=== PATIENT | female | born 1955 | race Asian ===

== ENCOUNTER 2016-10-20 07:55 | Emergency (ER) | payer OTHER ==
[~2016-10-20] VITALS: Ht 162.6 cm; Wt 63.6 kg
[~2016-10-20 07:55] MED LIST: AMOX1TAB10 PO; ASPI81TA3 PO; ATOR10TA65 PO; CARV12.579 PO; FLUT200B INHALATION; LOSA25TA5 PO; PANT40TA4 PO; TIOT4MIS4 INHALATION; [UNRECOGNIZED DRUG - OTHER] PO
[2016-10-20] MEDS ORDERED: ALBUTEROL 0.083% (NEB) 2.5 MG/3 ML AMP HHN STA (08:00)
[2016-10-20] MEDS ORDERED: IPRATROPIUM (NEB) 0.5 MG/2.5 ML AMP HHN ONE (08:00)
[2016-10-20 08:04] VITALS: Ht 162.6 cm; Wt 63.6 kg
[2016-10-20] MEDS ORDERED: METHYLPREDNISOLONE 40 MG INJ IV ONE (08:30)
--- NOTE | 2016-10-20 08:32 | RADRPT ---
PROCEDURE: XR Chest. CLINICAL INDICATION: Chest Pain. TECHNIQUE: Single frontal chest x-ray. COMPARISON: 10/05/2015 FINDINGS: The lungs are clear of acute infiltrates, edema, effusions, or masses. There is a left-sided cardiac pacer / AICD in place.. The cardiomediastinal silhouette is unremarkable. The osseous structures a re intact. IMPRESSION: No acute cardiopulmonary disease. Left-sided AICD in place. RPTAT: GG .Vasile Hernandez MD, Date Time Electronically viewed and signed by .Vasile Hernandez MD, MD on 10/20/2016 08:31 .L/
[2016-10-20 08:50] LABS: BASOPHILS % 0.1 % (0.0-2.0); EOSINOPHILS # 0.1 10^3/ul (0.0-0.5); EOSINOPHILS % 0.9 % (0.0-7.0); HEMATOCRIT 46.9 % (37.0-47.0); LYMPHOCYTES % 6.7 % (15.0-51.0); MEAN CORPUSCULAR HEMOGLOBIN 29.1 pg (29.0-33.0); MEAN CORPUSCULAR VOLUME 91.1 fl (82.0-101.0); MEAN PLATELET VOLUME 9.4 fl (7.4-10.4); MONOCYTE # 0.7 10^3/ul (0.3-0.9); MONOCYTES % 4.6 % (0.0-11.0); PLATELET COUNT 258 10^3/UL (140-415); RED BLOOD COUNT 5.15 10^6/ul (4.20-5.40); RED CELL DISTRIBUTION WIDTH 12.7 % (11.5-14.5); WHITE BLOOD COUNT 14.9 10^3/ul (4.8-10.8)
[2016-10-20 09:08] LABS: INR 0.87; PARTIAL THROMBOPLASTIN TIME 26.7 Sec (25.0-35.0); PROTIME 11.8 Sec (12.2-14.2); PT RATIO 0.9
[2016-10-20 09:12] LABS: ANION GAP 21 (8-16); BLOOD UREA NITROGEN 25 mg/dl (7-20); CALCIUM 9.3 mg/dl (8.4-10.2); CARBON DIOXIDE 29 mmol/L (21-31); CHLORIDE 102 mmol/L (97-110); CREATININE 0.86 mg/dl (0.44-1.00); GLUCOSE 164 mg/dl (70-220); POTASSIUM 3.6 mmol/L (3.5-5.1); SODIUM 148 mmol/L (135-144)
[2016-10-20 09:21] LABS: B-TYPE NATRIURETIC PEPTIDE 243 PG/ML (0-125)
[2016-10-20 09:55] LABS: TROPONIN-I < 0.012 ng/ml (0.00-0.12)
[2016-10-20] MEDS ORDERED: METHYLPREDNISOLONE 125 MG INJ IV ONE (10:00)
[2016-10-20 10:05] VITALS: BP 112/72; PULSE 106
[2016-10-20] MEDS ORDERED: LEVALBUTEROL (NEB) 1.25 MG/0.5 ML AMP HHN ONE (10:30)
[2016-10-20] MEDS ORDERED: ALBU18HF INHALATION (10:48)
[2016-10-20] MEDS ORDERED: PRED20TA PO (10:48)
[2016-10-20] MEDS ORDERED: AZIT250T94 PO (10:48)
--- NOTE | 2016-10-20 10:55 | ERD ---
ER Documentation Chief Complaint Date/Time DATE: 10/20/16 TIME: 10:51 Chief Complaint CAME IN VIA INTAKE DUE TO SHORTNESS OF BREATH HPI This 61-year-old male is brought in by paramedics with severe shortness of breath it has been going on for the last 3 days. Bedside Slovak certified pesticide applicator phone was used for the manner and language. Patient's was at bedside but did not speak Sami sufficiently either. Turns out patient lost her albuterol inhaler and she wanted to first use it last night she could not find it. She has had no fever and chills and no signs of infection. Denies any chest pain although she states that she does have a cardiac history she does not believe this is cardiac. ROS All systems reviewed and are negative except as per history of present illness. Medications Home Meds Active Scripts Prednisone* (Prednisone*) 20 Mg Tab, 40 MG PO DAILY for 4 Days, TAB Prov:JOO LANDRY 10/20/16 Albuterol Sulfate* (Ventolin HFA*) 18 Gm Hfa.aer.ad, 2 PUFF INHALATION Q4H, #1 INHALER Prov:JOO LANDRY 10/20/16 Azithromycin* (Zithromax*) 250 Mg Tablet, 250 MG PO .ZPACK DIRECTED, #6 TAB TAKE 500 MG (2 TABS) THE FIRST DAY THEN 250 MG (1 TAB) DAYS 2-5 Prov:JOO LANDRY 10/20/16 Amox Tr/Potassium Clavulanate (Amox Tr-K Clv 875-125 Mg Tab) 1 Tab Tablet, 875 MG PO BID, #14 TAB Prov:MEDINA TIAN MD 10/06/15 Carvedilol* (Carvedilol*) 12.5 Mg Tablet, 12.5 MG PO BID, #120 TAB Prov:MEDINA TIAN MD 10/06/15 Pantoprazole* (Pantoprazole*) 40 Mg Tablet.dr, 40 MG PO BID@,18 for 28 Days Prov:ÁNGELA DURÁN MD 09/05/15 Reported Medications Fluticasone Furoate (Arnuity Ellipta) 200 Mcg Blst.w.dev, 200 MCG INHALATION DAILY, #1 INHALER 09/01/15 Tiotropium Br/Olodaterol HCl (Stiolto Respimat Inhal [place]) 4 Gm Mist.inhal, 1 PUFF INHALATION DAILY, #1 INHALER 09/01/15 Atorvastatin Calcium (Atorvastatin Calcium) 10 Mg Tablet, 10 MG PO QHS, #30 TAB 09/01/15 Aspirin (Aspirin) 81 Mg Chew, 81 MG PO DAILY, TAB.CHEW 02/15/15 [Concor Bisoprolot] No Conflict Check, 2.5 MG PO QAM 02/15/15 Losartan Potassium* (Losartan Potassium*) 25 Mg Tablet, 25 MG PO BID, TAB 02/15/15 Allergies Allergies: Coded Allergies: No Known Allergy (Unverified , 10/06/15) PMhx/Soc History of Surgery: Yes (STENT PLACEMENT, PACEMAKER PLACEMENT) Anesthesia Reaction: No Hx Neurological Disorder: No Hx Respiratory Disorders: Yes (COPD) Hx Cardiac Disorders: Yes (HTN,PACEMAKER,HIGH CHOLESTEROL) Hx Psychiatric Problems: No Hx Miscellaneous Medical Probl: No Hx Alcohol Use: No Hx Substance Use: No Hx Tobacco Use: No Smoking Status: Never smoker Physical Exam Vitals Vital Signs Date Time Temp Pulse Resp B/P Pulse Ox O2 Delivery O2 Flow Rate FiO2 10/20/16 10:27 103 20 100 21 10/20/16 10:05 106 112/72 10/20/16 08:21 Vapotherm 10/20/16 08:07 109 24 100 Non Rebreather Mask 15.0 10/20/16 08:04 98.4 116 26 126/71 73 Physical Exam Const: [] Moderate distress, tachypneic Head: Atraumatic Eyes: Normal Conjunctiva ENT: Normal External Ears, Nose and Mouth. Neck: Full range of motion..~ No meningismus. Resp: Bilateral expiratory wheezes with tight lung sounds and mild accessory muscle use, tachypnea Cardio: Regular tachycardia, no murmurs Abd: Soft, non tender, non distended. Normal bowel sounds Skin: No petechiae or rashes Ext: No cyanosis, or edema Neur: Awake and alert and oriented 3, no focal deficit Psych: Appears somewhat anxious Result Diagram: 10/20/1682710/20/1628 Results 24 hrs Laboratory Tests Test 10/20/16 08:28 White Blood Count 14.910^3/ul Red Blood Count 5.1510^6/ul Hemoglobin 15.0g/dl Hematocrit 46.9% Mean Corpuscular Volume 91.1fl Mean Corpuscular Hemoglobin 29.1pg Mean Corpuscular Hemoglobin Concent 32.0g/dl Red Cell Distribution Width 12.7% Platelet Count 40513^3/UL Mean Platelet Volume 9.4fl Neutrophils % 87.0% Lymphocytes % 6.7% Monocytes % 4.6% Eosinophils % 0.9% Basophils % 0.1% Nucleated Red Blood Cells % 0.0/100WBC Neutrophils # 13.010^3/ul Lymphocytes # 1.010^3/ul Monocytes # 0.710^3/ul Eosinophils # 0.110^3/ul Basophils # 0.010^3/ul Nucleated Red Blood Cells # 0.010^3/ul Prothrombin Time 11.8Sec Prothrombin Time Ratio 0.9 INR International Normalized Ratio 0.87 Activated Partial Thromboplast Time 26.7Sec Sodium Level 148mmol/L Potassium Level 3.6mmol/L Chloride Level 102mmol/L Carbon Dioxide Level 29mmol/L Anion Gap 21 Blood Urea Nitrogen 25mg/dl Creatinine 0.86mg/dl Glucose Level 164mg/dl Calcium Level 9.3mg/dl Troponin I < 0.012ng/ml B-Type Natriuretic Peptide 243PG/ML Current Medications Medications (Trade) Dose Ordered Sig/Bebeto Route PRN Reason Start Time Stop Time Status Last Admin Dose Admin Albuterol (Proventil 0.083% (Neb)) 10 mg ONCE STAT [facility] 10/20/16 08:00 10/20/16 08:02 DC 10/20/16 08:05 Ipratropium [place] (Atrovent 0.02% (Neb)) 1 mg ONCE ONCE N 10/20/16 08:00 10/20/16 08:02 DC 10/20/16 08:05 Methylprednisolone Sodium Succinate (Solu-Medrol) 40 mg ONCE ONCE IV 10/20/16 08:30 10/20/16 08:31 DC 10/20/16 09:26 Methylprednisolone Sodium Succinate (Solu-Medrol) 125 mg ONCE ONCE IV 10/20/16 10:00 10/20/16 10:01 DC 10/20/16 10:03 Levalbuterol (Xopenex Neb) 1.25 mg ONCE ONCE [facility] 10/20/16 10:30 10/20/16 10:31 DC 10/20/16 10:26 Procedures/MDM Moderate to severe COPD exacerbation was able to be completely resolved in the emergency room with medication. Cardiac exam including laboratories EKG and dairy nutritionist was also performed secondary to patient's cardiac history. She was given Solu-Medrol IV. . she had a negative troponin and a tachycardic EKG without signs of overt acute cardiac ischemia. Patient was spoken to again after treatments with a lung sounds were completely normal. She stated that she had no symptoms whatsoever and absolutely did not want to stay in the hospital. Discharge instructions were explained to the patient she is going to follow-up with her primary care doctor which she has just recently changed. I am discharging with Ventolin, azithromycin as the patient did have an elevated white blood cell count I would not want to think bronchitis would continue to exacerbate this condition as well as 4 days of prednisone. EKG interpretation: Sinus tachycardia rate of 109, left axis deviation, right bundle branch block, no ST or T-wave changes concerning for acute ischemia, prolonged QTC of 535. [email or web address] engineer interpretation: Mild sinus tachycardia without other arrhythmia Chest x-ray interpretation: See ICD in place without any acute process, no infiltrate, no pulmonary edema, no fractures. Departure Diagnosis: Primary Impression: COPD exacerbation Condition: Stable Patient Instructions: Copd Flare Additional Instructions: Call your primary care doctor TOMORROW for an appointment during the next 2-3 days.See the doctor sooner or return here if your condition worsens before your appointment time. JOO LANDRY DO Oct 20, 2016 10:55
== END 2016-10-20 13:23 | disposition home or self-care (01) ==
LOC: E/R 07:55
DX: J44.1 Chronic obstructive pulmonary disease with (acute) exacerbation (principal); R40.2142 Coma scale, eyes open, spontaneous, at arrival to emergency department; R40.2252 Coma scale, best verbal response, oriented, at arrival to emergency department; R40.2362 Coma scale, best motor response, obeys commands, at arrival to emergency department; I10 Essential (primary) hypertension; Z95.0 Presence of cardiac pacemaker; Z98.61 Coronary angioplasty status; Z79.82 Long term (current) use of aspirin
CPT/HCPCS: 71010; 80048; 83880; 84484; 85025; 85610; 85730; 93005; 94644; 94664; J2920; J2930; Z7610; 36415; 96374; 96376

== ENCOUNTER 2018-05-17 18:38 | Emergency (ER) | payer OTHER ==
[~2018-05-17] VITALS: Ht 157.5 cm; Wt 63.3 kg
[~2018-05-17 18:38] MED LIST changes: +ALBU18HF INHALATION; +ASPI-831 PO; -ASPI81TA3 PO; +AZIT250T PO; +LOSA25TA12 PO; -LOSA25TA5 PO; +PRED20TA PO
[2018-05-17 18:56] VITALS: Ht 157.5 cm; Wt 63.3 kg
[2018-05-17] MEDS ORDERED: ALBUTEROL 0.5% (NEB) 2.5 MG/0.5 ML AMP INH STA (19:42)
[2018-05-17] MEDS ORDERED: DEXAMETHASONE 10 MG/ML 1 ML INJ IV STA (19:42)
[2018-05-17] MEDS ORDERED: IPRATROPIUM (NEB) 0.5 MG/2.5 ML AMP INH STA (19:42)
--- NOTE | 2018-05-17 20:03 | ERD ---
ER Documentation Chief Complaint Chief Complaint ASTHMA EXACERBATION; SOB; O2 SAT 74% ON ROOM AIR; PLACED ON O2 NC HPI 62-year-old female with a history of asthma, diabetes, and pacemaker brought in by for low oxygen saturations at home. She is not normally on home oxygen. She is complaining of shortness of breath since today. No chest pain. No other associated symptoms. She denies any leg swelling, recent fevers or chills. She does have inhalers at home which she used without relief. ROS All systems reviewed and are negative except as per history of present illness. Medications Home Meds Reported Medications Metformin* (Glucophage*) 500 Mg Tab, 500 MG PO BID, #90 TAB 05/17/18 Calcium Carbonate ([id number]) 500 Mg Tablet, 500 MG PO DAILY, TAB 05/17/18 Aspirin* (Aspirin* EC) 81 Mg Tablet.dr, 81 MG PO DAILY, TAB 05/17/18 Simvastatin (Simvastatin) 10 Mg Tablet, 10 MG PO QHS, #30 TAB 05/17/18 Fluticasone-Vilanterol (Breo Ellipta Inhaler) 100-25 Mcg/Actuation Aer.pow.ba, 1 PUFF INHALATION DAILY, #1 INHALER 05/17/18 Omeprazole* (Omeprazole*) 40 Mg Capsule.dr, 40 MG PO AC BREAKFAST, #30 CAP 05/17/18 Bisoprolol Fumarate* (Bisoprolol Fumarate*) 5 Mg Tablet, 5 MG PO DAILY, TAB 05/17/18 Montelukast Sodium* (Montelukast Sodium*) 10 Mg Tablet, 10 MG PO QHS, #30 TAB 05/17/18 Discontinued Reported Medications Fluticasone Furoate (Arnuity Ellipta) 200 Mcg Blst.w.dev, 200 MCG INHALATION DAILY, #1 INHALER 09/01/15 Tiotropium Br/Olodaterol HCl (Stiolto Respimat Inhal [place]) 4 Gm Mist.inhal, 1 PUFF INHALATION DAILY MDD AT HS, #1 INHALER 09/01/15 Atorvastatin Calcium (Atorvastatin Calcium) 10 Mg Tablet, 10 MG PO QHS, #30 TAB 09/01/15 Aspirin (Aspirin) 81 Mg Chew, 81 MG PO DAILY, TAB.CHEW 02/15/15 [Concor Bisoprolot] No Conflict Check, 2.5 MG PO QAM 02/15/15 Losartan Potassium* (Losartan Potassium*) 25 Mg Tablet, 25 MG PO BID, TAB 02/15/15 Discontinued Scripts Prednisone* (Prednisone*) 20 Mg Tab, 40 MG PO DAILY for 4 Days, TAB Prov:JOO LANDRY DO 10/20/16 Albuterol Sulfate* (Ventolin HFA*) 18 Gm Hfa.aer.ad, 2 PUFF INHALATION Q4H, #1 I NHALER Prov:JOO LANDRY DO 10/20/16 Azithromycin* (Zithromax*) 250 Mg Tablet, 250 MG PO .ZPACK DIRECTED, #6 TAB TAKE 500 MG (2 TABS) THE FIRST DAY THEN 250 MG (1 TAB) DAYS 2-5 Prov:JOO LANDRY 10/20/16 Amox Tr/Potassium Clavulanate (Amox Tr-K Clv 875-125 Mg Tab) 1 Tab Tablet, 875 MG PO BID, #14 TAB Prov:MEDINA TIAN MD 10/06/15 Carvedilol* (Carvedilol*) 12.5 Mg Tablet, 12.5 MG PO BID, #120 TAB Prov:MEDINA TIAN MD 10/06/15 Pantoprazole* (Pantoprazole*) 40 Mg Tablet.dr, 40 MG PO BID@06,18 for 28 Days Prov:ÁNGELA DURÁN MD 09/05/15 Allergies Allergies: Coded Allergies: No Known Allergy (Unverified , 10/06/15) PMhx/Soc History of Surgery: Yes (STENT PLACEMENT, PACEMAKER PLACEMENT) Anesthesia Reaction: No Hx Neurological Disorder: No Hx Respiratory Disorders: Yes (COPD) Hx Cardiac Disorders: Yes (HTN,PACEMAKER,HIGH CHOLESTEROL) Hx Psychiatric Problems: No Hx Miscellaneous Medical Probl: No Hx Alcohol Use: No Hx Substance Use: No Hx Tobacco Use: No Smoking Status: Never smoker FmHx Family History: No diabetes Physical Exam Vitals Vital Signs Date Temp Pulse Resp B/P (MAP) Pulse Ox O2 O2 Flow FiO2 Time Delivery Rate 05/17/18 91 19 102/85 99 Mask 10.0 20:32 (91) 05/17/18 89 28 97 Simple 8.0 19:50 Mask 05/17/18 Nasal 4 19:49 Cannula 05/17/18 98.8 96 24 143/73 98 18:56 (96) Physical Exam Const: In moderate respiratory distress, nontoxic Head: Atraumatic Eyes: Normal Conjunctiva ENT: Normal External Ears, Nose and Mouth. Neck: Full range of motion. No meningismus. Resp: Tachypneic. Diffuse expiratory wheezing with good air movement. No rales or rhonchi Cardio: Regular rate and rhythm, no murmurs. 2+ distal pulses in all 4 extremities Abd: Soft, non tender, non distended. Normal bowel sounds Skin: No petechiae or rashes Back: No midline or flank tenderness Ext: No cyanosis, or edema Neur: Awake and alert Psych: Normal Mood and Affect Result Diagram: 05/17/18199905/17/181999 Results 24 hrs Laboratory Tests Test 05/17/18 20:00 White Blood Count 7.6 10^3/ul Red Blood Count 4.91 10^6/ul Hemoglobin 14.1 g/dl Hematocrit 44.9 % Mean Corpuscular Volume 91.4 fl Mean Corpuscular Hemoglobin 28.7 pg Mean Corpuscular Hemoglobin Concent 31.4 g/dl Red Cell Distribution Width 12.4 % Platelet Count 302 10^3/UL Mean Platelet Volume 8.7 fl Immature Granulocytes % 0.900 % Neutrophils % 73.3 % Lymphocytes % 14.1 % Monocytes % 4.2 % Eosinophils % 7.1 % Basophils % 0.4 % Nucleated Red Blood Cells % 0.0 /100WBC Immature Granulocytes # 0.070 10^3/ul Neutrophils # 5.6 10^3/ul Lymphocytes # 1.1 10^3/ul Monocytes # 0.3 10^3/ul Eosinophils # 0.5 10^3/ul Basophils # 0.0 10^3/ul Nucleated Red Blood Cells # 0.0 10^3/ul Sodium Level 141 mmol/L Potassium Level 4.3 mmol/L Chloride Level 104 mmol/L Carbon Dioxide Level 29 mmol/L Anion Gap 8 Blood Urea Nitrogen 28 mg/dl Creatinine 0.88 mg/dl Est Glomerular Filtrat Rate mL/min > 60 mL/min Glucose Level 129 mg/dl Calcium Level 9.4 mg/dl Troponin I < 0.012 ng/ml Current Medications Medications Dose Sig/Bebeto Start Time Status Last (Trade) Ordered Route PRN Stop Time Admin Dose Reason Admin Albuterol 10 mg ONCE STAT 05/17/18 DC 05/17/18 (Proventil INH 19:42 05/17/18 19:50 0.5% (Neb)) 19:44 Ipratropium 1 mg ONCE STAT 05/17/18 DC 05/17/18 [place] INH 19:42 05/17/18 19:50 (Atrovent 19:44 0.02% (Neb)) 10 mg ONCE STAT 05/17/18 DC 05/17/18 Dexamethasone IV 19:42 05/17/18 20:06 (Decadron) 19:44 Procedures/MDM EMERGENT LABS AND DIAGNOSTIC STUDIES: Lab Results above were reviewed and interpreted by me. CBC: no anemia or evidence of infection BMP: No evidence of electrolyte abnormality, renal failure, hypoglycemia Troponin within normal limits, not indicative of cardiac ischemia 12-lead EKG was interpreted by Surya Givens MD: Atrial sensed V paced rhythm at 85 bpm Normal axis Normal intervals No acute ST or T wave changes suggestive of acute ischemia or STEMI. Radiology Results as interpreted by Radiology below were reviewed by Elpidio Givens MD: Chest x-ray: No acute abnormalities Initial Nursing notes reviewed. Previous Medical Records requested via the Electronic Health Record. EMERGENCY DEPARTMENT COURSE / MEDICAL DECISION MAKING: Patient presented with evidence of bronchospasm. She was immediately placed on oxygen and monitors and breathing treatment was initiated. Upon reevaluation, the patient's symptoms have improved. Wheezing has resolved on exam. Labs not show any significant abnormalities. I doubt acute coronary syndrome, acute CHF, or pulmonary embolism. I used a Mandarin legislative correspondent to explain the patient's discharge plan with her and her results. She understands discharge plan. Her is also at bedside. They do not want any refills on their inhalers. Return precautions were discussed. Follow-up with PCP was recommended in 2-3 days. Patient's blood pressure was elevated (>120/80) but appears stable without evidence of hypertensive emergency or urgency. The patient was counseled about the risks of hypertension and urged to pursue outpatient monitoring and therapy within a week with their primary care physician. Departure Diagnosis: Primary Impression: Asthma attack Asthma severity: moderate Asthma persistence: unspecified Qualified Codes: J45.901 - Unspecified asthma with (acute) exacerbation Condition: Stable JEAN PAUL GIVENS MD May 17, 2018 20:03
[2018-05-17 20:32] VITALS: BP 102/85; PULSE 91; RESP 19
[2018-05-17] MEDS ORDERED: BISO5TAB21 PO (21:07)
[2018-05-17] MEDS ORDERED: MONT10TA24 PO (21:07)
[2018-05-17] MEDS ORDERED: OMEP40CA6 PO (21:08)
[2018-05-17] MEDS ORDERED: ZOC10 PO (21:08)
[2018-05-17] MEDS ORDERED: FLUT1AER INHALATION (21:08)
[2018-05-17] MEDS ORDERED: ASPI-817 PO (21:09)
[2018-05-17] MEDS ORDERED: CALC500T91 PO (21:09)
[2018-05-17] MEDS ORDERED: METF-849 PO (21:09)
== END 2018-05-17 22:28 | disposition home or self-care (01) ==
LOC: FTE 18:38 → E/R 22:28
DX: J45.901 Unspecified asthma with (acute) exacerbation (principal); J44.9 Chronic obstructive pulmonary disease, unspecified; I10 Essential (primary) hypertension; E11.9 Type 2 diabetes mellitus without complications; Z79.82 Long term (current) use of aspirin; Z95.0 Presence of cardiac pacemaker; Z98.61 Coronary angioplasty status
CPT/HCPCS: 71045; 80048; 84484; 85025; 94644; J1100; Z7610; 36415; 93005; 96374